=== PATIENT | male | born 1990 | race Caucasian/White ===

== ENCOUNTER 2017-03-23 21:37 | Emergency (ER) | payer MEDICAID, OTHER ==
[~2017-03-23] VITALS: Ht 177.8 cm; Wt 84.0 kg
[2017-03-23 21:39] VITALS: BP 137/83; PULSE 55; RESP 16; TEMP 98.8; O2SAT 99
--- NOTE | 2017-03-23 21:53 | PD ---
Physical Exam Time Seen by Provider: 21:50 Narrative 26yo M c/o abd pain x1 month w/ nausea and three episodes of vomiting in the past month. Reports occasional diarrhea. Denies urinary symptoms. reports decreased appetite. Denies fever. Patient stable. Patient seen in triage. Awaiting bed placement. Data Data Last Documented VS Vital Signs Date Time Temp Pulse Resp B/P Pulse Ox O2 Delivery O2 Flow Rate FiO2 03/23/17 21:39 98.8 55 16 137/83 99 Room Air [place] Supervised Visit with IRVIN: Anny Cody Mar 23, 2017 21:53
[2017-03-23 23:03] VITALS: BP 151/95; PULSE 65; RESP 16; TEMP 98.6; O2SAT 99
--- NOTE | 2017-03-23 23:11 | PD ---
HPI Chief Complaint: Abdominal Pain Time Seen by Provider: 23:11 Travel History International Travel<30 days: No Contact w/Intl Traveler<30days: No Traveled to known affect area: No History of Present Illness HPI 26-year-old male came to the emergency room with history of nausea, occasional vomiting and abdominal pain for past 3 weeks. Patient says that his symptoms are not getting better. He decided to come to the emergency room. He does have an appointment with his primary care in the morning. But he could not take it anymore and decided to come here. His mother was in the room as well. Patient upon asking says drinks alcohol once every 2 days. He has had history of gastritis in the past. But it has never lasted this long. He has been extremely nauseous and not been eating or drinking too well. Upon asking to point out where he hurts the most he pointed to the epigastric and periumbilical area. No history of diarrhea or constipation. Patient has history of hydrocephalus and has a SENIOR MEDICAL BILLING SPECIALIST shunt. He had an MRI done over a week ago and is supposed to see his physician next week. No history of headache. PFSH Past Medical History Narrative Medical List of his past medical, surgical, social and family history was reviewed from the nursing note. Diminished Hearing: No Medical other: Yes (Chronic neck pain) Tetanus Vaccination: Unknown Influenza Vaccination: No Past Surgical History Neurologic Surgery: Yes (SENIOR MEDICAL BILLING SPECIALIST shunt from 1991) Social History Alcohol Use: Yes (1-2 beers every other day) Tobacco Use: Yes Substance Use: Yes (marijuana occaisonal) Allergies-Medications (Allergen,Severity, Reaction): Coded Allergies: No Known Allergies (Unverified , 03/23/17) Comments No known drug allergies. Reported Meds & Prescriptions Reported Meds & Active Scripts Active Zofran Odt (Ondansetron Odt) 4 Mg Tab 4 Mg SL Q6HR PRN Protonix (Pantoprazole Sodium) 20 Mg Tab 20 Mg PO DAILY Hydrocodone-Acetaminophen 5-325 mg Tab 1 Tab PO Q6H PRN Reported Cymbalta DR (Duloxetine HCl) 60 Mg Capdr 60 Mg PO DAILY Vistaril (Hydroxyzine Pamoate) 50 Mg Cap 50 Mg PO TID [place] (Hydrocodone-Acetaminophen) 7.5-325 mg Tab 1 Tab PO Q8HR PRN Narrative Medication List of his home medications reviewed from the nursing note. Review of Systems Except as stated in HPI: all other systems reviewed are Neg Physical Exam Narrative GENERAL: Awake, alert, mild distress SKIN: Focused skin assessment warm/dry. HEAD: Atraumatic. Normocephalic. EYES: Pupils equal and round. No scleral icterus. No injection or drainage. Sustained nystagmus ENT: No nasal bleeding or discharge. Mucous membranes pink and moist. NECK: Trachea midline. No JVD. SENIOR MEDICAL BILLING SPECIALIST shunt cord noticed. CARDIOVASCULAR: Regular rate and rhythm. No murmur appreciated. RESPIRATORY: No accessory muscle use. Clear to auscultation. Breath sounds equal bilaterally. GASTROINTESTINAL: Abdomen soft, non-tender, nondistended. Hepatic and splenic margins not palpable. MUSCULOSKELETAL: No obvious deformities. No clubbing. No cyanosis. No edema. NEUROLOGICAL: Awake and alert. No obvious cranial nerve deficits. Motor grossly within normal limits. Normal speech. PSYCHIATRIC: Appropriate mood and affect; insight and judgment normal. Data Data Last Documented VS Vital Signs Date Time Temp Pulse Resp B/P Pulse Ox O2 Delivery O2 Flow Rate FiO2 03/24/17 00:25 16 03/23/17 23:03 98.6 65 151/95 99 Room Air Orders Complete Blood Count With Diff (03/23/17 23:23) Comprehensive Metabolic Panel (03/23/17 23:23) Lipase (03/23/17 23:23) Urinalysis - C+S If Indicated (03/23/17 23:23) Iv Access Insert/Monitor (03/23/17 23:23) Ecg Monitoring (03/23/17 23:23) Oximetry (03/23/17 23:23) Morphine Inj (Morphine Inj) (03/23/17 23:30) Ondansetron Inj (Zofran Inj) (03/23/17 23:30) Sodium Chlor 0.9% 1000 Ml Inj (Ns 1000 M (03/23/17 23:23) Sodium Chloride 0.9% Flush (Ns Flush) (03/23/17 23:30) Ct Abd/Pel W/O Iv Contrast (03/23/17 ) Ct Brain W/O Iv Contrast(Rout) (03/23/17 ) Potassium Chloride Eff (K-Lyte Cl Eff) (03/24/17 09:00) Potassium Chlor 10 Meq Premix (Kcl 10 Me (03/24/17 00:30) Calcium Gluconate Inj (Calcium Gluconate (03/24/17 00:45) Sodium Chlor 0.9% 1000 Ml Inj (Ns 1000 M (03/24/17 00:45) Ondansetron Inj (Zofran Inj) (03/24/17 01:45) Labs Laboratory Tests Test 03/23/17 03/24/17 23:30 00:25 White Blood Count 9.4 TH/MM3 Red Blood Count 4.90 MIL/MM3 Hemoglobin 14.7 GM/DL Hematocrit 42.9 % Mean Corpuscular Volume 87.5 FL Mean Corpuscular Hemoglobin 30.1 PG Mean Corpuscular Hemoglobin 34.3 % Concent Red Cell Distribution Width 14.2 % Platelet Count 203 TH/MM3 Mean Platelet Volume 10.6 FL Neutrophils (%) (Auto) 70.1 % Lymphocytes (%) (Auto) 19.3 % Monocytes (%) (Auto) 9.0 % Eosinophils (%) (Auto) 1.1 % Basophils (%) (Auto) 0.5 % Neutrophils # (Auto) 6.6 TH/MM3 Lymphocytes # (Auto) 1.8 TH/MM3 Monocytes # (Auto) 0.8 TH/MM3 Eosinophils # (Auto) 0.1 TH/MM3 Basophils # (Auto) 0.1 TH/MM3 CBC Comment DIFF FINAL Differential Comment Sodium Level 144 MEQ/L Potassium Level 3.1 MEQ/L Chloride Level 114 MEQ/L Carbon Dioxide Level 19.5 MEQ/L Anion Gap 11 MEQ/L Blood Urea Nitrogen 7 MG/DL Creatinine 0.71 MG/DL Estimat Glomerular Filtration 135 ML/MIN Rate Random Glucose 75 MG/DL Calcium Level 6.8 MG/DL Protein Corrected Calcium 7.4 MG/DL Total Bilirubin 0.2 MG/DL Aspartate Amino Transf 21 U/L (AST/SGOT) Alanine Aminotransferase 44 U/L (ALT/SGPT) Alkaline Phosphatase 72 U/L Total Protein 5.9 GM/DL Albumin 3.2 GM/DL Lipase 735 U/L Urine Color LIGHT-YELLOW Urine Turbidity CLEAR Urine pH 7.0 Urine Specific [place] 1.008 Urine Protein NEG mg/dL Urine Glucose (UA) NEG mg/dL Urine Ketones NEG mg/dL Urine Occult Blood NEG Urine Nitrite NEG Urine Bilirubin NEG Urine Urobilinogen LESS THAN 2.0 MG/DL Urine Leukocyte Esterase NEG Urine RBC LESS THAN 1 /hpf Urine Mucus FEW /lpf Microscopic Urinalysis Comment CULT NOT INDICATED MDM Medical Decision Making Medical Screen Exam Complete: Yes Emergency Medical Condition: Yes Medical Record Reviewed: Yes Differential Diagnosis Acute pancreatitis, acute appendicitis, acute cholecystitis Narrative Course 1:52 AM blood test result was suggestive of acute pancreatitis with hypokalemia , hypocalcemia and dehydration. He was given by mouth and IV replacement of potassium and calcium. CT of the abdomen and pelvis was within normal limits. Patient was given instructions regarding clear liquid diet for next 48 hours. He will be discharged home. He has an appointment with his primary care this morning. Procedures EKG Prior to Arrival: No Diagnosis Primary Impression: Acute pancreatitis Qualified Code: K85.20 - Alcohol-induced acute pancreatitis, unspecified complication status Additional Impressions: Hypokalemia Hypocalcemia Dehydration Referrals: Primary Care Physician Additional Instructions: Please follow-up with your primary care as per the appointment this morning. Take clear liquid diet for the next 48 hours. Clear liquid diet consists of apple juice, Jell-O, clear broth, varinder sina, regular tea etc. Please return to the ER if the condition worsens or any other new concerns. Take the medication as per the prescription direction. Complete alcohol abstinence as required. Med/Other Pt SpecificInfo: Prescription(s) given Scripts Ondansetron Odt (Zofran Odt)4 Mg Tab4 Mg SL Q6HR PRN (Nausea/Vomiting) #15 TAB Ref 0 Prov:Dio Lyon MD 03/24/17 Pantoprazole (Protonix)20 Mg Tab20 Mg PO DAILY #30 TAB Ref 0 Prov:Dio Lyon MD 03/24/17 Hydrocodone-Acetaminophen 5-325 mg Tab1 Tab PO Q6H PRN (PAIN) #15 TAB Ref 0 Prov:Dio Lyon MD 03/24/17 Disposition: 01 DISCHARGE HOME Condition: Stable Dio Lyon MD Mar 23, 2017 23:11 Dio Lyon MD Mar 23, 2017 23:11
[2017-03-23] MEDS ORDERED: VIST50CA PO (23:13)
[2017-03-23] MEDS ORDERED: HYDR-3288 PO (23:13)
[2017-03-23] MEDS ORDERED: CYMB60CA PO (23:13)
[2017-03-23] MEDS ORDERED: SODIUM CHLOR 0.9% 1000 ML INJ 1,000 ML IV SCH (23:23)
[2017-03-23] MEDS ORDERED: ONDANSETRON HCL 4 MG/2 ML VIAL IVP ONE (23:30)
[2017-03-23] MEDS ORDERED: SODIUM CHLORIDE 0.9% FLUSH 10 ML FLUSH IV FLUSH PRN (23:30)
[2017-03-23] MEDS ORDERED: MORPHINE SULFATE 4 MG/ML INJ IV PUSH ONE (23:30)
[2017-03-23 23:51] LABS: AUTOMATED NEUTROPHIL # 6.6 TH/MM3 (1.8-7.7); BASOPHIL # 0.1 TH/MM3 (0-0.2); BASOPHIL % 0.5 % (0.0-2.0); EOSINOPHIL # 0.1 TH/MM3 (0-0.4); EOSINOPHIL % 1.1 % (0.0-4.0); HEMATOCRIT 42.9 % (39.0-51.0); HEMO FLAGS DIFF FINAL; LYMPH % 19.3 % (9.0-44.0); LYMPHOCYTE # 1.8 TH/MM3 (1.0-4.8); MEAN CELL VOLUME 87.5 FL (80.0-100.0); MEAN CORPUSCULAR HEMOGLOBIN 30.1 PG (27.0-34.0); MEAN CORPUSCULAR HGB CONC 34.3 % (32.0-36.0); NEUT % 70.1 % (16.0-70.0); PLATELET COUNT 203 TH/MM3 (150-450); RED CELL DISTRIBUTION WIDTH 14.2 % (11.6-17.2); WHITE BLOOD COUNT 9.4 TH/MM3 (4.0-11.0)
--- NOTE | 2017-03-23 23:55 | RADRPT ---
EXAM DATE/TIME: 03/23/2017 23:39 [facility] COMPARISON: No previous studies available for comparison. INDICATIONS : Medial abdominal pain with nausea and vomiting. ORAL CONTRAST: No oral contrast ingested. 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 ENCOUNTER: Initial ACUITY: 1 month PAIN SCALE: 7/10 LOCATION: medial abdomen TECHNIQUE: Volumetric scanning of the abdomen and pelvis was performed. Using automated exposure control and ad justment of the mA and/or kV according to patient size, radiation dose was kept as low as reasonably achievable to obtain optimal diagnostic quality images. FINDINGS: LOWER LUNGS: The visualized lower lungs are clear. LIVER: Homogeneous density without lesion. There is no dilation of the biliary tree. No calcified gallston es. SPLEEN: Normal size without lesion. PANCREAS: Within normal limits. KIDNEYS: Normal in size and shape. There is no mass, stone, or hydronephrosis. ADRENAL GLANDS: Within normal limits. VASCULAR: There is no aortic aneurysm. BOWEL/MESENTERY: The stomach, small bowel, and colon demonstrate no acute abnormality. There is no free intraperitone al air or fluid. The appendix is unremarkable. No inflammatory changes are seen. There is a peritonea l catheter in the right anterior to mid abdomen. No loculated fluid collections are demonstrated. ABDOMINAL WALL: Within normal limits. RETROPERITONEUM: There is no lymphadenopathy. BLADDER: No wall thickening or mass. REPRODUCTIVE: Within normal limits. INGUINAL: There is no lymphadenopathy or hernia. MUSCULOSKELETAL: Within normal limits for patient age. CONCLUSION: Unremarkable CT scan of the abdomen/pelvis. Jose Martin Villalta MD on March 23, 2017 at 23:51 Board Certified Radiologist. This report was verified electronically.
--- NOTE | 2017-03-23 23:58 | RADRPT ---
EXAM DATE/TIME: 03/23/2017 23:42 [facility] COMPARISON: No previous studies available for comparison. INDICATIONS : Cephalgia. 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 ENCOUNTER: Initial ACUITY: 1 day PAIN SCALE: 4/10 LOCATION: cranial TECHNIQUE: Multiple contiguous axial images were obtained of the head. Using automated exposure control and adj ustment of the mA and/or kV according to patient size, radiation dose was kept as low as reasonably a chievable to obtain optimal diagnostic quality images. FINDINGS: CEREBRUM: The ventricles are decompressed. There is a right ventricular/peritoneal shunt catheter is in place i n the frontal horn of the right lateral ventricle.. No evidence of midline shift, mass lesion, hemor rhage or acute infarction. No extra-axial fluid collections are seen. There are some calcifications along the posterior falx. POSTERIOR FOSSA: The cerebellum and brainstem are intact. The 4th ventricle is midline. The cerebellopontine angle i s unremarkable. EXTRACRANIAL: The visualized portion of the orbits is intact. SKULL: The calvaria is intact. No evidence of skull fracture. CONCLUSION: 1. No focal or acute intracranial pathology. 2. Right SENIOR PRODUCT INTEGRITY ENGINEER shunt catheter in place. The ventricles are decompressed. Jose Martin Villalta MD on March 23, 2017 at 23:54 Board Certified Radiologist. This report was verified electronically.
[2017-03-24 00:17] LABS: BICARBONATE 19.5 MEQ/L (21.0-32.0); POTASSIUM 3.1 MEQ/L (3.5-5.1); TOTAL BILIRUBIN ADULT 0.2 MG/DL (0.2-1.0)
[2017-03-24 00:20] LABS: CALCIUM-PROTEIN CORRECTED 7.4 MG/DL (8.5-10.1)
[2017-03-24 00:25] VITALS: RESP 16
[2017-03-24] MEDS ORDERED: POTASSIUM CHLOR 10 MEQ PREMIX 100 ML IV ONE (00:30)
[2017-03-24] MEDS ORDERED: CALCIUM GLUCONATE 10% 1 GM/10 ML VIAL IV PUSH ONE (00:45)
[2017-03-24] MEDS ORDERED: SODIUM CHLOR 0.9% 1000 ML INJ 1,000 ML IV ONE (00:45)
[2017-03-24 00:55] LABS: BLOOD, URINE NEG (NEG); GLUCOSE,URINE NEG (NEG); KETONE, URINE NEG (NEG); MUCUS URINE FEW /lpf (OCC); NITRITE,URINE NEG (NEG); URINE COLOR LIGHT-YELLOW (YELLW/STRAW)
[2017-03-24 00:56] LABS: COMMENT (UR) CULT NOT INDICATED; CULTURE IF INDICATED CULT NOT INDICATED
[2017-03-24] MEDS ORDERED: ONDANSETRON HCL 4 MG/2 ML VIAL IV PUSH ONE (01:45)
[2017-03-24] MEDS ORDERED: HYDR-3516 PO (01:56)
[2017-03-24] MEDS ORDERED: PANT20 PO (01:56)
[2017-03-24] MEDS ORDERED: ZOFR4TAB3 SL (01:56)
[2017-03-24] MEDS ORDERED: POTASSIUM CHLORIDE 25 MEQ EFFERVESCENT TAB NG SCH (09:00)
== END 2017-03-24 03:27 | disposition home or self-care (01) ==
LOC: NEPE 21:37
DX: K85.90 Acute pancreatitis without necrosis or infection, unspecified (principal); E87.6 Hypokalemia; E83.51 Hypocalcemia; E86.0 Dehydration; Z72.0 Tobacco use
CPT/HCPCS: 70450; 74176; 80053; 81001; 83690; 85025; 96361; 96374; 96375; 96376; 99284; J0610; J2270; J2405; J3480; J7030

== ENCOUNTER 2017-04-15 11:51 | Emergency (ER) | payer MEDICAID ==
[~2017-04-15] VITALS: Ht 177.8 cm; Wt 85.0 kg
[~2017-04-15 11:51] MED LIST: CYMB60CA PO; HYDR-3288 PO; HYDR-3516 PO; PANT20 PO; VIST50CA PO; ZOFR4TAB3 SL
[2017-04-15 11:53] VITALS: BP 134/87; PULSE 120; RESP 24; TEMP 97.2; O2SAT 99
[2017-04-15] MEDS ORDERED: SODIUM CHLOR 0.9% 1000 ML INJ 1,000 ML IV SCH (12:20)
--- NOTE | 2017-04-15 12:25 | PD ---
HPI Chief Complaint: Abdominal Pain Time Seen by Provider: 12:22 Travel History International Travel<30 days: No Contact w/Intl Traveler<30days: No Traveled to known affect area: No History of Present Illness HPI 26-year-old male presents to the emergency department with his mother and father for evaluation of abdominal pain. Patient states this started yesterday. Patient does report history of hydrocephalus with LABORATORY APPARATUS GLASS BLOWER shunt. He is also legally blind according to his mother at bedside. The patient reports one episode of vomiting and 3 episodes of diarrhea today. No blood in his stool. Patient does state that he drink 2 wine coolers yesterday and the pain started after. Patient states he has been having this intermittent pain over the past few months. He was seen here on March 23, 2017 was diagnosed with acute pancreatitis. He states that he follow up with primary care physician who only put him on stool softeners and said that the pain continued they would give him a GI consult. He is trying to get that GI consult at this time, but has not yet received it. No chest pain. No fevers. He has had positive chills. PFSH Past Medical History Diminished Hearing: No Past Surgical History Neurologic Surgery: Yes (LABORATORY APPARATUS GLASS BLOWER shunt from 1991) Social History Alcohol Use: Yes (1-2 beers every other day) Tobacco Use: Yes Substance Use: Yes (marijuana occaisonal) Allergies-Medications (Allergen,Severity, Reaction): Coded Allergies: No Known Allergies (Unverified , 03/23/17) Reported Meds & Prescriptions Reported Meds & Active Scripts Active Ondansetron Odt 4 Mg Tab 4 Mg SL Q6HR PRN Bentyl (Dicyclomine HCl) 20 Mg Tab 20 Mg PO QID PRN 7 Days Zofran Odt (Ondansetron Odt) 4 Mg Tab 4 Mg SL Q6HR PRN Protonix (Pantoprazole Sodium) 20 Mg Tab 20 Mg PO DAILY Hydrocodone-Acetaminophen 5-325 mg Tab 1 Tab PO Q6H PRN Reported Cymbalta DR (Duloxetine HCl) 60 Mg Capdr 60 Mg PO DAILY Vistaril (Hydroxyzine Pamoate) 50 Mg Cap 50 Mg PO TID [place] (Hydrocodone-Acetaminophen) 7.5-325 mg Tab 1 Tab PO Q8HR PRN Review of Systems Except as stated in HPI: all other systems reviewed are Neg Physical Exam Narrative GENERAL: Well-nourished, well-developed male patient, afebrile. SKIN: Focused skin assessment warm/dry. HEAD: Normocephalic. Atraumatic. EYES: No scleral icterus. No injection or drainage. NECK: Supple, trachea midline. No JVD or lymphadenopathy. CARDIOVASCULAR: Regular rate and rhythm without murmurs, gallops, or rubs. RESPIRATORY: Breath sounds equal bilaterally. No accessory muscle use. Lungs sounds are clear to auscultation. GASTROINTESTINAL: Abdomen soft and nondistended. Patient has diffuse tenderness throughout. MUSCULOSKELETAL: No cyanosis, or edema. BACK: Nontender without obvious deformity. No CVA tenderness. Data Data Last Documented VS Vital Signs Date Time Temp Pulse Resp B/P Pulse Ox O2 Delivery O2 Flow Rate FiO2 04/15/17 14:16 66 04/15/17 14:15 16 119/77 99 Room Air 04/15/17 11:53 97.2 Orders Complete Blood Count With Diff (04/15/17 12:20) Comprehensive Metabolic Panel (04/15/17 12:20) Lipase (04/15/17 12:20) Iv Access Insert/Monitor (04/15/17 12:20) Ecg Monitoring (04/15/17 12:20) Oximetry (04/15/17 12:20) Ondansetron Inj (Zofran Inj) (04/15/17 12:30) Sodium Chlor 0.9% 1000 Ml Inj (Ns 1000 M (04/15/17 12:20) Sodium Chloride 0.9% Flush (Ns Flush) (04/15/17 12:30) Morphine Inj (Morphine Inj) (04/15/17 12:30) Pantoprazole Inj (Protonix Inj) (04/15/17 12:30) Labs Laboratory Tests Test 04/15/17 12:30 White Blood Count 8.2 TH/MM3 Red Blood Count 4.93 MIL/MM3 Hemoglobin 14.5 GM/DL Hematocrit 42.5 % Mean Corpuscular Volume 86.3 FL Mean Corpuscular Hemoglobin 29.4 PG Mean Corpuscular Hemoglobin 34.1 % Concent Red Cell Distribution Width 13.4 % Platelet Count 257 TH/MM3 Mean Platelet Volume 10.6 FL Neutrophils (%) (Auto) 70.4 % Lymphocytes (%) (Auto) 19.9 % Monocytes (%) (Auto) 7.9 % Eosinophils (%) (Auto) 1.0 % Basophils (%) (Auto) 0.8 % Neutrophils # (Auto) 5.7 TH/MM3 Lymphocytes # (Auto) 1.6 TH/MM3 Monocytes # (Auto) 0.6 TH/MM3 Eosinophils # (Auto) 0.1 TH/MM3 Basophils # (Auto) 0.1 TH/MM3 CBC Comment DIFF FINAL Differential Comment Sodium Level 138 MEQ/L Potassium Level 3.9 MEQ/L Chloride Level 105 MEQ/L Carbon Dioxide Level 21.6 MEQ/L Anion Gap 11 MEQ/L Blood Urea Nitrogen 11 MG/DL Creatinine 0.97 MG/DL Estimat Glomerular Filtration 94 ML/MIN Rate Random Glucose 94 MG/DL Calcium Level 9.5 MG/DL Total Bilirubin 0.3 MG/DL Aspartate Amino Transf 29 U/L (AST/SGOT) Alanine Aminotransferase 59 U/L (ALT/SGPT) Alkaline Phosphatase 95 U/L Total Protein 7.6 GM/DL Albumin 4.1 GM/DL Lipase 99 U/L [facility] Medical Decision Making Medical Screen Exam Complete: Yes Emergency Medical Condition: Yes Medical Record Reviewed: Yes Differential Diagnosis Pancreatitis versus gastritis versus electrolyte abnormality versus diverticulitis Narrative Course 26-year-old male presents to the emergency department for evaluation of abdominal pain that started yesterday. He was seen on March 23, 2017 was diagnosed acute pancreatitis. CT abdomen/pelvis at that time showed no acute abnormality. Patient was discharged home. CBC, CMP, lipase are ordered and pending. Patient is given normal saline 1 L IV bolus, Zofran 4 mg IV, Protonix 40 mg IV, morphine 4 mg IV for pain. CBC shows no acute abnormality. CMP is unremarkable. Lipase is 99. Patient had recent CT imaging that showed no acute abnormality. I instructed the patient on the need to follow up with gastroenterology. He'll be discharged with a prescription for Bentyl and Zofran. Patient verbalizes agreement. Patient is requesting penicillin for a toothache. The patient was discharged in stable condition with instructions, including return instructions and follow up instructions. Diagnosis Primary Impression: Abdominal pain Qualified Code: R10.9 - Abdominal pain, unspecified location Referrals: Aircraft Life Support Fitter call for appointment Patient Instructions: Abdominal Pain (ED), General Instructions Additional Instructions: Take Bentyl as directed as needed for abdominal pain. Take Zofran as directed as needed for nausea. Penicillin for toothache. Follow up with prepress proofer. Return to emergency department for any acute, worsening of symptoms. Med/Other Pt SpecificInfo: Prescription(s) given Scripts Penicillin V Potassium 500 Mg [id number] Mg PO Q6H 10 Days Ref 0 Prov:Janie Hough 04/15/17 Ondansetron Odt 4 Mg Tab4 Mg SL Q6HR PRN (Nausea/Vomiting) #16 TAB Ref 0 Prov:Janie Hough 04/15/17 Dicyclomine (Bentyl)20 Mg Tab20 Mg PO QID PRN (ABDOMINAL CRAMPING) 7 Days Ref 0 Prov:Janie Hough 04/15/17 Disposition: 01 DISCHARGE HOME Condition: Stable Janie Hough April 15, 2017 12:24
[2017-04-15] MEDS ORDERED: MORPHINE SULFATE 4 MG/ML INJ IV PUSH ONE (12:30)
[2017-04-15] MEDS ORDERED: ONDANSETRON HCL 4 MG/2 ML VIAL IVP ONE (12:30)
[2017-04-15] MEDS ORDERED: PANTOPRAZOLE SODIUM 40 MG VIAL IV PUSH ONE (12:30)
[2017-04-15] MEDS ORDERED: SODIUM CHLORIDE 0.9% FLUSH 10 ML FLUSH IV FLUSH PRN (12:30)
[2017-04-15 13:00] LABS: AUTOMATED NEUTROPHIL # 5.7 TH/MM3 (1.8-7.7); BASOPHIL # 0.1 TH/MM3 (0-0.2); BASOPHIL % 0.8 % (0.0-2.0); EOSINOPHIL # 0.1 TH/MM3 (0-0.4); HEMATOCRIT 42.5 % (39.0-51.0); HEMO FLAGS DIFF FINAL; LYMPH % 19.9 % (9.0-44.0); LYMPHOCYTE # 1.6 TH/MM3 (1.0-4.8); MEAN CELL VOLUME 86.3 FL (80.0-100.0); MEAN CORPUSCULAR HEMOGLOBIN 29.4 PG (27.0-34.0); MEAN CORPUSCULAR HGB CONC 34.1 % (32.0-36.0); MONO % 7.9 % (0.0-8.0); NEUT % 70.4 % (16.0-70.0); PLATELET COUNT 257 TH/MM3 (150-450); RED BLOOD COUNT 4.93 MIL/MM3 (4.50-5.90); RED CELL DISTRIBUTION WIDTH 13.4 % (11.6-17.2); WHITE BLOOD COUNT 8.2 TH/MM3 (4.0-11.0)
[2017-04-15 13:24] LABS: ALKALINE PHOSPHATASE 95 U/L (45-117); ALT (GPT) 59 U/L (12-78); ANION GAP 11 MEQ/L (5-15); AST (GOT) 29 U/L (15-37); BICARBONATE 21.6 MEQ/L (21.0-32.0); BLOOD UREA NITROGEN 11 MG/DL (7-18); CHLORIDE 105 MEQ/L (98-107); GLOMERULAR FILTRATION RATE 94 ML/MIN (>89); POTASSIUM 3.9 MEQ/L (3.5-5.1); SODIUM (NA) 138 MEQ/L (136-145); TOTAL BILIRUBIN ADULT 0.3 MG/DL (0.2-1.0)
[2017-04-15] MEDS ORDERED: ONDA4TAB7 SL (13:56)
[2017-04-15] MEDS ORDERED: BENT20TA PO (13:56)
[2017-04-15 14:15] VITALS: BP 119/77; PULSE 66; RESP 16; O2SAT 99
[2017-04-15 14:16] VITALS: PULSE 66
[2017-04-15] MEDS ORDERED: PENI500T PO (14:36)
--- NOTE | 2017-04-15 14:44 | PD ---
Data Data Last Documented VS Vital Signs Date Time Temp Pulse Resp B/P Pulse Ox O2 Delivery O2 Flow Rate FiO2 04/15/17 14:16 66 04/15/17 14:15 16 119/77 99 Room Air 04/15/17 11:53 97.2 Orders Complete Blood Count With Diff (04/15/17 12:20) Comprehensive Metabolic Panel (04/15/17 12:20) Lipase (04/15/17 12:20) Iv Access Insert/Monitor (04/15/17 12:20) Ecg Monitoring (04/15/17 12:20) Oximetry (04/15/17 12:20) Ondansetron Inj (Zofran Inj) (04/15/17 12:30) Sodium Chlor 0.9% 1000 Ml Inj (Ns 1000 M (04/15/17 12:20) Sodium Chloride 0.9% Flush (Ns Flush) (04/15/17 12:30) Morphine Inj (Morphine Inj) (04/15/17 12:30) Pantoprazole Inj (Protonix Inj) (04/15/17 12:30) Labs Laboratory Tests Test 04/15/17 12:30 White Blood Count 8.2 TH/MM3 Red Blood Count 4.93 MIL/MM3 Hemoglobin 14.5 GM/DL Hematocrit 42.5 % Mean Corpuscular Volume 86.3 FL Mean Corpuscular Hemoglobin 29.4 PG Mean Corpuscular Hemoglobin 34.1 % Concent Red Cell Distribution Width 13.4 % Platelet Count 257 TH/MM3 Mean Platelet Volume 10.6 FL Neutrophils (%) (Auto) 70.4 % Lymphocytes (%) (Auto) 19.9 % Monocytes (%) (Auto) 7.9 % Eosinophils (%) (Auto) 1.0 % Basophils (%) (Auto) 0.8 % Neutrophils # (Auto) 5.7 TH/MM3 Lymphocytes # (Auto) 1.6 TH/MM3 Monocytes # (Auto) 0.6 TH/MM3 Eosinophils # (Auto) 0.1 TH/MM3 Basophils # (Auto) 0.1 TH/MM3 CBC Comment DIFF FINAL Differential Comment Sodium Level 138 MEQ/L Potassium Level 3.9 MEQ/L Chloride Level 105 MEQ/L Carbon Dioxide Level 21.6 MEQ/L Anion Gap 11 MEQ/L Blood Urea Nitrogen 11 MG/DL Creatinine 0.97 MG/DL Estimat Glomerular Filtration 94 ML/MIN Rate Random Glucose 94 MG/DL Calcium Level 9.5 MG/DL Total Bilirubin 0.3 MG/DL Aspartate Amino Transf 29 U/L (AST/SGOT) Alanine Aminotransferase 59 U/L (ALT/SGPT) Alkaline Phosphatase 95 U/L Total Protein 7.6 GM/DL Albumin 4.1 GM/DL Lipase 99 U/L [facility] Supervised Visit with IRVIN: Yes Narrative Course The history, exam, and medical decision-making in the associated mid-level provider note were completed with my assistance. I reviewed and agree with the findings presented. I attest that I had a [id number] encounter with the patient on the same day, and personally performed and documented my assessment and findings in the medical record. *My assessment and Findings: 26-year-old man with abdominal pain for the past several weeks. Etiology is unclear. He is to be pretty heavy drinker. He has not drank in several months. He had workup including a mildly elevated lipase when he was here last. CT was normal. Never really fully improved. He still having significant pain. He has not been able follow-up with GI. Is no history of previous similar problems. His a NEON SIGN MECHANIC shunt but no other abdominal surgeries. Workup here is unremarkable with normal labs. I think the patient needs a endoscopy and GI follow-up. We'll give him a referral. Diagnosis Primary Impression: Abdominal pain Qualified Code: R10.9 - Abdominal pain, unspecified location Referrals: Title Assistant call for appointment Patient Instructions: General Instructions, Abdominal Pain (ED) Additional Instruction: Take Bentyl as directed as needed for abdominal pain. Take Zofran as directed as needed for nausea. Penicillin for toothache. Follow up with medical assistant dermatology for possible endoscopy. Return to emergency department for any acute, worsening of symptoms. Scripts Penicillin V Potassium 500 Mg [id number] Mg PO Q6H 10 Days Ref 0 Prov:Janie Hough 04/15/17 Ondansetron Odt 4 Mg Tab4 Mg SL Q6HR PRN (Nausea/Vomiting) #16 TAB Ref 0 Prov:Janie Hough 04/15/17 Dicyclomine (Bentyl)20 Mg Tab20 Mg PO QID PRN (ABDOMINAL CRAMPING) 7 Days Ref 0 Prov:Janie Hough 04/15/17 Disposition: 01 DISCHARGE HOME Condition: Stable TrishaJames C. MD April 15, 2017 14:43
== END 2017-04-15 14:58 | disposition home or self-care (01) ==
LOC: NEPC 11:51
DX: R10.9 Unspecified abdominal pain (principal)
CPT/HCPCS: 80053; 83690; 85025; 96361; 96374; 96375; 99284; C9113; J2270; J2405; J7030

== ENCOUNTER 2017-04-29 11:06 | Inpatient (IN) | payer MEDICAID ==
[~2017-04-29] VITALS: Ht 177.8 cm; Wt 78.4 kg
[~2017-04-29 11:06] MED LIST changes: +BENT20TA PO; +ONDA4TAB7 SL; +PENI500T PO
[2017-04-29 11:08] VITALS: BP 132/84; PULSE 62; RESP 20; TEMP 98.6; O2SAT 98
[2017-04-29] MEDS ORDERED: SODIUM CHLOR 0.9% 1000 ML INJ 1,000 ML IV SCH (11:46)
--- NOTE | 2017-04-29 11:56 | PD ---
HPI Chief Complaint: Abdominal Pain Time Seen by Provider: 11:45 Travel History International Travel<30 days: No Contact w/Intl Traveler<30days: No Traveled to known affect area: No History of Present Illness HPI This is a 26-year-old male presents for evaluation of abdominal pain, nausea, vomiting, diarrhea. He has had constant aching generalized abdominal pain for 2 months. He reports that sometimes the pain comes on in stronger waves on the sides of his abdomen. He has had intermittent episodes of nausea and vomiting, loose stools over the course of these 2 months as well. He has been seen at this emergency room twice in the past few months, when outside emergency room for evaluation of these symptoms. He was found to have mild pancreatitis and early February. He has been prescribed Protonix, Bentyl, Zofran which seems to help only mildly with his symptoms. He has been smoking marijuana which does help with his symptoms as well. Symptoms worsened today which prompted evaluation. He has been told in the past to follow-up with gastroenterology but he was having difficulty getting a referral from his primary care physician. He recently switched primary care physicians, he was actually supposed to have his first appointment with his new primary care physician today but because symptoms were so great he elected to come here instead. He endorses one episode of mucousy bloody emesis today. He denies any flank pain, fevers or chills, headache, chest pain or shortness of breath, testicular or scrotal pain, dysuria. No other complaints. PFSH Past Medical History Diminished Hearing: No Past Surgical History Neurologic Surgery: Yes (ORAL AND MAXILLOFACIAL PATHOLOGIST shunt from 1991) Social History Alcohol Use: Yes Tobacco Use: No Substance Use: No Allergies-Medications (Allergen,Severity, Reaction): Coded Allergies: Tylenol/Codeine (Verified Adverse Reaction, Intermediate, Confusion, ) says he also become combative Reported Meds & Prescriptions Reported Meds & Active Scripts Active Penicillin V Potassium 500 Mg Tab 500 Mg PO Q6H 10 Days Ondansetron Odt 4 Mg Tab 4 Mg SL Q6HR PRN Bentyl (Dicyclomine HCl) 20 Mg Tab 20 Mg PO QID PRN 7 Days Zofran Odt (Ondansetron Odt) 4 Mg Tab 4 Mg SL Q6HR PRN Protonix (Pantoprazole Sodium) 20 Mg Tab 20 Mg PO DAILY Hydrocodone-Acetaminophen 5-325 mg Tab 1 Tab PO Q6H PRN Reported Cymbalta DR (Duloxetine HCl) 60 Mg Capdr 60 Mg PO DAILY Vistaril (Hydroxyzine Pamoate) 50 Mg Cap 50 Mg PO TID Sims (Hydrocodone-Acetaminophen) 7.5-325 mg Tab 1 Tab PO Q8HR PRN Review of Systems Except as stated in HPI: all other systems reviewed are Neg Physical Exam Narrative GENERAL: Well-developed well-nourished male in no acute distress SKIN: Warm and dry. HEAD: Atraumatic. Normocephalic. EYES: Pupils equal and round. No scleral icterus. No injection or drainage. ENT: No nasal bleeding or discharge. Mucous membranes pink and moist. NECK: Trachea midline. No JVD. CARDIOVASCULAR: Regular rate and rhythm. No murmur appreciated. RESPIRATORY: No accessory muscle use. Clear to auscultation. Breath sounds equal bilaterally. GASTROINTESTINAL: Abdomen soft, generalized tenderness to palpation, particularly greater in the epigastrium without guarding. MUSCULOSKELETAL: No obvious deformities. No CVA tenderness. No edema. NEUROLOGICAL: Awake and alert. No obvious cranial nerve deficits. Motor grossly within normal limits. Normal speech. PSYCHIATRIC: Appropriate mood and affect; insight and judgment normal. Data Data Last Documented VS Vital Signs Date Time Temp Pulse Resp B/P Pulse Ox O2 Delivery O2 Flow Rate FiO2 04/29/17 12:51 96 Room Air 04/29/17 11:08 98.6 62 20 132/84 Orders Complete Blood Count With Diff (04/29/17 11:46) Comprehensive Metabolic Panel (04/29/17 11:46) Lipase (04/29/17 11:46) Urinalysis - C+S If Indicated (04/29/17 11:46) Ct Abd/Pel W Iv Contrast(Rout) (04/29/17 11:46) Iv Access Insert/Monitor (04/29/17 11:46) Ecg Monitoring (04/29/17 11:46) Oximetry (04/29/17 11:46) Pantoprazole Inj (Protonix Inj) (04/29/17 12:00) Sodium Chlor 0.9% 1000 Ml Inj (Ns 1000 M (04/29/17 11:46) Sodium Chloride 0.9% Flush (Ns Flush) (04/29/17 12:00) Al-Mag Hy-Si 40-40-4 Mg/Ml Liq (Mag-Al P (04/29/17 12:00) Lidocaine 2% Viscous (Xylocaine 2% Visco (04/29/17 12:00) Metoclopramide Inj (Reglan Inj) (04/29/17 12:00) Morphine Inj (Morphine Inj) (04/29/17 12:45) Iohexol 350 Inj (Omnipaque 350 Inj) (04/29/17 13:19) Admit To Inpatient (04/29/17 ) Vital Signs (Adult) Q4H (04/29/17 14:10) Activity Oob With Assistance (04/29/17 14:10) Diet Npo (04/29/17 Dinner) Lactated Ringer's 1000 Ml Inj (Lr 1000 M (04/29/17 14:10) Sodium Chloride 0.9% Flush (Ns Flush) (04/29/17 14:15) Sodium Chloride 0.9% Flush (Ns Flush) (04/29/17 21:00) Ondansetron Inj (Zofran Inj) (04/29/17 14:15) Comprehensive Metabolic Panel (04/30/17 06:00) Complete Blood Count With Diff (04/30/17 06:00) Lipase (04/30/17 06:00) Case Management Consult (04/29/17 14:10) Scd Bilateral/Knee High NEFTALI.BID (04/29/17 14:10) Naloxone Inj (Narcan Inj) (04/29/17 14:15) Docusate Sodium-Senna (Cecilia-Colace) (04/29/17 21:00) Magnesium Hydroxide Liq (Milk Of Magnesi (04/29/17 14:15) Sennosides (Senokot) (04/29/17 14:15) Bisacodyl Supp (Dulcolax Supp) (04/29/17 14:15) Lactulose Liq (Lactulose Liq) (04/29/17 14:15) Inpatient Certification (04/29/17 ) Admit Order (Ed Use Only) (04/29/17 14:12) Labs Laboratory Tests Test 04/29/17 04/29/17 11:55 12:05 White Blood Count 7.7 TH/MM3 Red Blood Count 4.76 MIL/MM3 Hemoglobin 14.4 GM/DL Hematocrit 41.5 % Mean Corpuscular Volume 87.3 FL Mean Corpuscular Hemoglobin 30.2 PG Mean Corpuscular Hemoglobin 34.6 % Concent Red Cell Distribution Width 13.7 % Platelet Count 217 TH/MM3 Mean Platelet Volume 10.6 FL Neutrophils (%) (Auto) 70.9 % Lymphocytes (%) (Auto) 18.6 % Monocytes (%) (Auto) 7.9 % Eosinophils (%) (Auto) 2.2 % Basophils (%) (Auto) 0.4 % Neutrophils # (Auto) 5.5 TH/MM3 Lymphocytes # (Auto) 1.4 TH/MM3 Monocytes # (Auto) 0.6 TH/MM3 Eosinophils # (Auto) 0.2 TH/MM3 Basophils # (Auto) 0.0 TH/MM3 CBC Comment DIFF FINAL Differential Comment Sodium Level 139 MEQ/L Potassium Level 3.8 MEQ/L Chloride Level 108 MEQ/L Carbon Dioxide Level 25.2 MEQ/L Anion Gap 6 MEQ/L Blood Urea Nitrogen 7 MG/DL Creatinine 0.93 MG/DL Estimat Glomerular Filtration 99 ML/MIN Rate Random Glucose 104 MG/DL Calcium Level 8.7 MG/DL Total Bilirubin 0.3 MG/DL Aspartate Amino Transf 16 U/L (AST/SGOT) Alanine Aminotransferase 47 U/L (ALT/SGPT) Alkaline Phosphatase 97 U/L Total Protein 7.3 GM/DL Albumin 4.1 GM/DL Lipase 1106 U/L Urine Color YELLOW Urine Turbidity CLEAR Urine pH 6.5 Urine Specific [place] 1.018 Urine Protein TRACE mg/dL Urine Glucose (UA) NEG mg/dL Urine Ketones NEG mg/dL Urine Occult Blood NEG Urine Nitrite NEG Urine Bilirubin NEG Urine Urobilinogen LESS THAN 2.0 MG/DL Urine Leukocyte Esterase NEG Urine RBC LESS THAN 1 /hpf Urine WBC LESS THAN 1 /hpf Microscopic Urinalysis Comment CULT NOT INDICATED MDM Medical Decision Making Medical Screen Exam Complete: Yes Emergency Medical Condition: Yes Medical Record Reviewed: Yes Differential Diagnosis Gastritis, peptic ulcer disease, pancreatitis, biliary colic, cholecystitis, obstruction, gastroenteritis, perforation, inflammatory bowel disease Narrative Course 26-year-old male with 2 months of abdominal pain, intermittent episodes of nausea, vomiting, diarrhea, worse today. Plan is for basic lab work, CT abdomen and pelvis, urinalysis. He will be given Protonix, IV fluids, Reglan, GI cocktail. The patient's laboratory imaging studies of been reviewed. He has pancreatitis , enteritis. He will be admitted for further evaluation and treatment. Discussed with Dr. Melgoza who is agreeable. Diagnosis Primary Impression: Acute pancreatitis Qualified Code: K85.90 - Acute pancreatitis, unspecified complication status, unspecified pancreatitis type Additional Impression: Enteritis Admitting Information Admitting Physician Requests: Admit Elan Rodas April 29, 2017 11:56
[2017-04-29] MEDS ORDERED: PANTOPRAZOLE SODIUM 40 MG VIAL IVP ONE (12:00)
[2017-04-29] MEDS ORDERED: LIDOCAINE VISCOUS 2% SOLN 15 ML UDC PO ONE (12:00)
[2017-04-29] MEDS ORDERED: ALUMINUM/MAGNESIUM/SIMETH 30 ML CUP PO ONE (12:00)
[2017-04-29] MEDS ORDERED: METOCLOPRAMIDE HCL 10 MG/2 ML VIAL IV PUSH ONE (12:00)
[2017-04-29] MEDS ORDERED: SODIUM CHLORIDE 0.9% FLUSH 10 ML FLUSH IV FLUSH PRN ×2 (12:00→14:15)
[2017-04-29 12:07] LABS: AUTOMATED NEUTROPHIL # 5.5 TH/MM3 (1.8-7.7); BASOPHIL % 0.4 % (0.0-2.0); EOSINOPHIL # 0.2 TH/MM3 (0-0.4); EOSINOPHIL % 2.2 % (0.0-4.0); HEMATOCRIT 41.5 % (39.0-51.0); HEMO FLAGS DIFF FINAL; LYMPH % 18.6 % (9.0-44.0); LYMPHOCYTE # 1.4 TH/MM3 (1.0-4.8); MEAN CELL VOLUME 87.3 FL (80.0-100.0); MEAN CORPUSCULAR HEMOGLOBIN 30.2 PG (27.0-34.0); MEAN CORPUSCULAR HGB CONC 34.6 % (32.0-36.0); MONO % 7.9 % (0.0-8.0); NEUT % 70.9 % (16.0-70.0); PLATELET COUNT 217 TH/MM3 (150-450); RED BLOOD COUNT 4.76 MIL/MM3 (4.50-5.90); RED CELL DISTRIBUTION WIDTH 13.7 % (11.6-17.2); WHITE BLOOD COUNT 7.7 TH/MM3 (4.0-11.0)
[2017-04-29 12:30] LABS: ALT (GPT) 47 U/L (12-78); ANION GAP 6 MEQ/L (5-15); AST (GOT) 16 U/L (15-37); BICARBONATE 25.2 MEQ/L (21.0-32.0); BLOOD UREA NITROGEN 7 MG/DL (7-18); CHLORIDE 108 MEQ/L (98-107); GLOMERULAR FILTRATION RATE 99 ML/MIN (>89); POTASSIUM 3.8 MEQ/L (3.5-5.1); SODIUM (NA) 139 MEQ/L (136-145)
[2017-04-29 12:33] LABS: ALKALINE PHOSPHATASE 97 U/L (45-117); TOTAL BILIRUBIN ADULT 0.3 MG/DL (0.2-1.0)
[2017-04-29 12:34] LABS: BLOOD, URINE NEG (NEG); COMMENT (UR) CULT NOT INDICATED; CULTURE IF INDICATED CULT NOT INDICATED; GLUCOSE,URINE NEG (NEG); KETONE, URINE NEG (NEG); NITRITE,URINE NEG (NEG); PH, URINE 6.5 (5.0-8.5); URINE COLOR YELLOW (YELLW/STRAW)
[2017-04-29] MEDS ORDERED: MORPHINE SULFATE 4 MG/ML INJ IV PUSH ONE (12:45)
[2017-04-29 12:51] VITALS: O2SAT 96
[2017-04-29] MEDS ORDERED: IOHEXOL 350 MG/ML 10 ML VIAL (for RAD DIAG) IV ONE (13:19)
--- NOTE | 2017-04-29 13:50 | RADRPT ---
EXAM DATE/TIME: 04/29/2017 13:13 [facility] COMPARISON: No previous studies available for comparison. INDICATIONS : Abdomen pain for 1 month with nausea, vomiting and diarrhea IV CONTRAST: 99 cc Omnipaque 350 (iohexol) IV ORAL CONTRAST: No oral contrast ingested. RADIATION DOSE: 9.96 CTDIvol (mGy) MEDICAL HISTORY : None SURGICAL HISTORY : ORDER FILLER shunt ENCOUNTER: Initial ACUITY: 1 month PAIN SCALE: 5/10 LOCATION: Abdomen pain TECHNIQUE: Volumetric scanning of the abdomen and pelvis was performed. Using automated exposure control and ad justment of the mA and/or kV according to patient size, radiation dose was kept as low as reasonably achievable to obtain optimal diagnostic quality images. FINDINGS: Ventriculoperitoneal shunt is evident. The liver is free of focal defects. Spleen, pancreas, adrena ls and kidneys are unremarkable. There is symmetrical renal function. There is minimal bowel wall thickening in the jejunum, nonspecific. There is no adenopathy appreciat ed. Region of the cecum and terminal ileum are unremarkable. Diverticula are present in the sigmoid colon without diverticulitis. Bladder, prostate, seminal vesi cles are unremarkable. There is no inguinal or axillary adenopathy. CONCLUSION: Minimal bowel wall thickening in proximal jejunum without adenopathy, nonspecific. Duarte Borrego MD FACR on April 29, 2017 at 13:39 Board Certified Radiologist. This report was verified electronically.
--- NOTE | 2017-04-29 14:07 | PD ---
Data Data Last Documented VS Vital Signs Date Time Temp Pulse Resp B/P Pulse Ox O2 Delivery O2 Flow Rate FiO2 04/29/17 12:51 96 Room Air 04/29/17 11:08 98.6 62 20 132/84 Orders Complete Blood Count With Diff (04/29/17 11:46) Comprehensive Metabolic Panel (04/29/17 11:46) Lipase (04/29/17 11:46) Urinalysis - C+S If Indicated (04/29/17 11:46) Ct Abd/Pel W Iv Contrast(Rout) (04/29/17 11:46) Iv Access Insert/Monitor (04/29/17 11:46) Ecg Monitoring (04/29/17 11:46) Oximetry (04/29/17 11:46) Pantoprazole Inj (Protonix Inj) (04/29/17 12:00) Sodium Chlor 0.9% 1000 Ml Inj (Ns 1000 M (04/29/17 11:46) Sodium Chloride 0.9% Flush (Ns Flush) (04/29/17 12:00) Al-Mag Hy-Si 40-40-4 Mg/Ml Liq (Mag-Al P (04/29/17 12:00) Lidocaine 2% Viscous (Xylocaine 2% Visco (04/29/17 12:00) Metoclopramide Inj (Reglan Inj) (04/29/17 12:00) Morphine Inj (Morphine Inj) (04/29/17 12:45) Iohexol 350 Inj (Omnipaque 350 Inj) (04/29/17 13:19) Labs Laboratory Tests Test 04/29/17 04/29/17 11:55 12:05 White Blood Count 7.7 TH/MM3 Red Blood Count 4.76 MIL/MM3 Hemoglobin 14.4 GM/DL Hematocrit 41.5 % Mean Corpuscular Volume 87.3 FL Mean Corpuscular Hemoglobin 30.2 PG Mean Corpuscular Hemoglobin 34.6 % Concent Red Cell Distribution Width 13.7 % Platelet Count 217 TH/MM3 Mean Platelet Volume 10.6 FL Neutrophils (%) (Auto) 70.9 % Lymphocytes (%) (Auto) 18.6 % Monocytes (%) (Auto) 7.9 % Eosinophils (%) (Auto) 2.2 % Basophils (%) (Auto) 0.4 % Neutrophils # (Auto) 5.5 TH/MM3 Lymphocytes # (Auto) 1.4 TH/MM3 Monocytes # (Auto) 0.6 TH/MM3 Eosinophils # (Auto) 0.2 TH/MM3 Basophils # (Auto) 0.0 TH/MM3 CBC Comment DIFF FINAL Differential Comment Sodium Level 139 MEQ/L Potassium Level 3.8 MEQ/L Chloride Level 108 MEQ/L Carbon Dioxide Level 25.2 MEQ/L Anion Gap 6 MEQ/L Blood Urea Nitrogen 7 MG/DL Creatinine 0.93 MG/DL Estimat Glomerular Filtration 99 ML/MIN Rate Random Glucose 104 MG/DL Calcium Level 8.7 MG/DL Total Bilirubin 0.3 MG/DL Aspartate Amino Transf 16 U/L (AST/SGOT) Alanine Aminotransferase 47 U/L (ALT/SGPT) Alkaline Phosphatase 97 U/L Total Protein 7.3 GM/DL Albumin 4.1 GM/DL Lipase 1106 U/L Urine Color YELLOW Urine Turbidity CLEAR Urine pH 6.5 Urine Specific [place] 1.018 Urine Protein TRACE mg/dL Urine Glucose (UA) NEG mg/dL Urine Ketones NEG mg/dL Urine Occult Blood NEG Urine Nitrite NEG Urine Bilirubin NEG Urine Urobilinogen LESS THAN 2.0 MG/DL Urine Leukocyte Esterase NEG Urine RBC LESS THAN 1 /hpf Urine WBC LESS THAN 1 /hpf Microscopic Urinalysis Comment CULT NOT INDICATED MDM Supervised Visit with IRVIN: Yes Narrative Course The history, exam, and medical decision-making in the associated mid-level provider note were completed with my assistance. I reviewed and agree with the findings presented. I attest that I had a [id number] encounter with the patient on the same day, and personally performed and documented my assessment and findings in the medical record. *My assessment and Findings: 26-year-old male for months worth of worsening epigastric abdominal pain associated with nausea vomiting. 2 previous visits with a negative CT and a mildly elevated lipase. Today with significant elevation of lipase adjusting pancreatitis with a cause of his symptoms. Etiology is unclear. Looks otherwise well. We'll plan on admission for further evaluation and treatment. James Rico MD April 29, 2017 14:07
[2017-04-29] MEDS ORDERED: LACTULOSE SYRUP 20 GM/30 ML CUP PO PRN (14:15)
[2017-04-29] MEDS ORDERED: SENNOSIDES 8.6 MG TAB PO PRN (14:15)
[2017-04-29] MEDS ORDERED: BISACODYL 10 MG SUPP RECTAL PRN (14:15)
[2017-04-29] MEDS ORDERED: NALOXONE HCL 0.4 MG/ML AMP IV PRN (14:15)
[2017-04-29] MEDS ORDERED: MAGNESIUM HYDROXIDE SUSP 30 ML CUP PO PRN (14:15)
[2017-04-29] MEDS: PANTOPRAZOLE SODIUM 40 MG VIAL IV PUSH SCH ×2 (15:14→21:11)
[2017-04-29] MEDS: LACTATED RINGER'S 1000 ML INJ 1,000 ML IV SCH ×2 (15:14→21:18)
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
[2017-04-29 16:15] VITALS: BP 132/72
[2017-04-29 16:38] VITALS: BP 111/69
[2017-04-29 17:00] VITALS: BP 112/72; PULSE 74; RESP 18; TEMP 97.9; O2SAT 95
--- NOTE | 2017-04-29 19:22 | HHI.HP ---
[facility] Primary Care Physician No Primary Care Physician Admission Diagnosis Pancreatitis, enteritis Diagnoses: Travel History International Travel<30 Days: No Contact w/Intl Traveler <30 Da: No Traveled to Known Affected Are: No History of Present Illness 26-year-old male with history of ENVIRONMENTAL COMPLIANCE TECHNICIAN shunt who presents with a 2 month history of gradually worsening nausea, sharp intermittent epigastric pain, as well as left lower quadrant abdominal pain, with tenesmus. Patient also reports a two- week history of nonbloody, foul-smelling diarrhea about 4 times daily. Patient came in today because nausea was much worse, with small blood tinge, as well as worsening of left lower quadrant pain. He does smoke marijuana, which helps with his nausea. He does report that hot showers improve his nausea. Review of Systems Performed and negative except for history of present illness and past medical history. Past Family Social History Past Medical History History of hydrocephalus with placement of ENVIRONMENTAL COMPLIANCE TECHNICIAN shunt in 1991 Legally blind. 9, sixth nerve palsy Past Surgical History insertion ENVIRONMENTAL COMPLIANCE TECHNICIAN shunt 1991. No subsequent ventriculograms or replacements. Reported Medications Reported Meds & Active Scripts Active Penicillin V Potassium 500 Mg Tab 500 Mg PO Q6H 10 Days Ondansetron Odt 4 Mg Tab 4 Mg SL Q6HR PRN Bentyl (Dicyclomine HCl) 20 Mg Tab 20 Mg PO QID PRN 7 Days Zofran Odt (Ondansetron Odt) 4 Mg Tab 4 Mg SL Q6HR PRN Protonix (Pantoprazole Sodium) 20 Mg Tab 20 Mg PO DAILY Hydrocodone-Acetaminophen 5-325 mg Tab 1 Tab PO Q6H PRN Reported Cymbalta DR (Duloxetine HCl) 60 Mg Capdr 60 Mg PO DAILY Vistaril (Hydroxyzine Pamoate) 50 Mg Cap 50 Mg PO TID [place] (Hydrocodone-Acetaminophen) 7.5-325 mg Tab 1 Tab PO Q8HR PRN Allergies: Coded Allergies: Tylenol/Codeine (Verified Adverse Reaction, Intermediate, Confusion, ) says he also become combative Family History Mother with diverticulitis. Father with colon cancer. No family history of Crohn's, UC, or autoimmune disease. Social History Patient has smoked one half pack per day for the past 15 years. Patient quit drinking 3 weeks ago. Previously drank on average 2-3 beers per day. Marijuana daily Physical Exam Vital Signs Vital Signs Date Time Temp Pulse Resp B/P Pulse Ox O2 Delivery O2 Flow Rate FiO2 04/29/17 17:00 97.9 74 18 112/72 95 04/29/17 16:38 111/69 04/29/17 16:15 132/72 04/29/17 12:51 96 Room Air 04/29/17 11:08 98.6 62 20 132/84 98 Room Air Physical Exam GENERAL: This is a well-nourished, well-developed patient. Appears uncomfortable. Alert and oriented 3. SKIN: No rashes, ecchymoses or lesions. Cool and dry. HEAD: Atraumatic. Normocephalic. No temporal or scalp tenderness. EYES: Pupils equal round and reactive. Extraocular motions intact. No scleral icterus. No injection or drainage. ENT: Nose without bleeding, purulent drainage or septal hematoma. Throat without erythema, tonsillar hypertrophy or exudate. Uvula midline. Airway patent. NECK: Trachea midline. No JVD or lymphadenopathy. Supple, nontender, no meningeal signs. CARDIOVASCULAR: Regular rate and rhythm without murmurs, gallops, or rubs. RESPIRATORY: Clear to auscultation. Breath sounds equal bilaterally. No wheezes , rales, or rhonchi. GASTROINTESTINAL: Abdomen soft, tender to moderate palpation in the left lower quadrant. No rebound or guarding. No hepato-splenomegaly, or palpable masses. No guarding. MUSCULOSKELETAL: Extremities without clubbing, cyanosis, or edema. No joint tenderness, effusion, or edema noted. No calf tenderness. Negative Homans sign bilaterally. NEUROLOGICAL: Awake and alert. Patient with vision loss, nystagmus. Otherwise no neurologic deficit Motor and sensory grossly within normal limits. Five out of 5 muscle strength in all muscle groups. Normal speech. Laboratory Laboratory Tests Test 04/29/17 04/29/17 11:55 12:05 White Blood Count 7.7 Red Blood Count 4.76 Hemoglobin 14.4 Hematocrit 41.5 Mean Corpuscular Volume 87.3 Mean Corpuscular Hemoglobin 30.2 Mean Corpuscular Hemoglobin 34.6 Concent Red Cell Distribution Width 13.7 Platelet Count 217 Mean Platelet Volume 10.6 Neutrophils (%) (Auto) 70.9 Lymphocytes (%) (Auto) 18.6 Monocytes (%) (Auto) 7.9 Eosinophils (%) (Auto) 2.2 Basophils (%) (Auto) 0.4 Neutrophils # (Auto) 5.5 Lymphocytes # (Auto) 1.4 Monocytes # (Auto) 0.6 Eosinophils # (Auto) 0.2 Basophils # (Auto) 0.0 CBC Comment DIFF FINAL Differential Comment Sodium Level 139 Potassium Level 3.8 Chloride Level 108 Carbon Dioxide Level 25.2 Anion Gap 6 Blood Urea Nitrogen 7 Creatinine 0.93 Estimat Glomerular Filtration 99 Rate Random Glucose 104 Calcium Level 8.7 Total Bilirubin 0.3 Aspartate Amino Transf 16 (AST/SGOT) Alanine Aminotransferase 47 (ALT/SGPT) Alkaline Phosphatase 97 Total Protein 7.3 Albumin 4.1 Lipase 1106 Urine Color YELLOW Urine Turbidity CLEAR Urine pH 6.5 Urine Specific [place] 1.018 Urine Protein TRACE Urine Glucose (UA) NEG Urine Ketones NEG Urine Occult Blood NEG Urine Nitrite NEG Urine Bilirubin NEG Urine Urobilinogen LESS THAN 2.0 Urine Leukocyte Esterase NEG Urine RBC LESS THAN 1 Urine WBC LESS THAN 1 Microscopic Urinalysis Comment CULT NOT INDICATED Result Diagram: 04/29/17 1155 04/29/17 1155 Imaging Last Impressions Abdomen/Pelvis CT 04/29/17 1146 Signed Impressions: Service Date/Time: Saturday, April 29, 2017 13:13 - CONCLUSION: Minimal bowel wall thickening in proximal jejunum without adenopathy, nonspecific. Duarte Borrego MD FACR Assessment and Plan Assessment and Plan //Acute pancreatitis -Lipase over 1000. Unremarkable pancreas on CT. -Due to what appears to be recurrent nature of this pancreatitis given previous admissions, will consult GI. -Nothing by mouth, continue IV fluids //Diarrhea. Subacute //Jejunitis -This could be secondary to inflammation from pancreatitis. -Due to recent penicillin for right upper molar, will check C. difficile. -Continue PPI secondary to possible peptic ulcer. -Continue IV fluids. GI following. Appreciate assistance. //Right upper molar. No signs of abscess. Has completed therapy with penicillin as outpatient. Will need to follow-up with dentist as outpatient. //History of ENVIRONMENTAL COMPLIANCE TECHNICIAN shunt. Legally blind No acute findings on CT abdomen. No acute neurologic issues. //Marijuana use. Patient counseled on cessation. Cessation strongly advised //Tobaccoism. Cessation counseling provided. Cessation strongly advised. //Prophylaxis SCDs. Hold chemical anticoagulation pending possible GI procedure. Code Status Full code Discussed Condition With Patient, nurse, ED physician. Physician Certification 2 Midnight Certification Type: Admission for Inpatient Services Order for Inpatient Services The services are ordered in accordance with Medicare regulations or non- Medicare payer requirements, as applicable. In the case of services not specified as inpatient-only, they are appropriately provided as inpatient services in accordance with the 2-midnight benchmark. Estimated LOS (days): 3 days is the estimated time the patient will need to remain in the hospital, assuming treatment plan goals are met and no additional complications. Post-Hospital Plan: Not yet determined Flex Melgoza MD April 29, 2017 19:22
[2017-04-29 20:00] VITALS: BP 119/72; PULSE 69; RESP 16; TEMP 98.9; O2SAT 98
[2017-04-29] MEDS: SODIUM CHLORIDE 0.9% FLUSH 10 ML FLUSH IV FLUSH SCH (21:10)
[2017-04-29] MEDS: ONDANSETRON HCL 4 MG/2 ML VIAL IVP PRN (21:10)
[2017-04-29] MEDS: MORPHINE SULFATE 4 MG/ML INJ IV PUSH PRN (21:10)
[2017-04-29] MEDS: DOCUSATE SODIUM 50 MG/SENNA 8.6 MG TAB PO SCH (21:11)
[2017-04-30] VITALS (8 sets, daily range): BP systolic 95–158; BP diastolic 60–78; PULSE 52–100; RESP 16–20; TEMP 97–98.5; O2SAT 97–99
[2017-04-30] MEDS: MORPHINE SULFATE 4 MG/ML INJ IV PUSH PRN ×4 (03:30→21:38)
[2017-04-30] MEDS: LACTATED RINGER'S 1000 ML INJ 1,000 ML IV SCH ×3 (03:31→20:08)
[2017-04-30 07:29] LABS: AUTOMATED NEUTROPHIL # 5.3 TH/MM3 (1.8-7.7); BASOPHIL # 0.1 TH/MM3 (0-0.2); BASOPHIL % 0.7 % (0.0-2.0); EOSINOPHIL # 0.2 TH/MM3 (0-0.4); EOSINOPHIL % 2.6 % (0.0-4.0); HEMATOCRIT 42.7 % (39.0-51.0); HEMO FLAGS DIFF FINAL; LYMPH % 23.3 % (9.0-44.0); LYMPHOCYTE # 1.9 TH/MM3 (1.0-4.8); MEAN CELL VOLUME 89.8 FL (80.0-100.0); MEAN CORPUSCULAR HGB CONC 32.2 % (32.0-36.0); MONO % 7.9 % (0.0-8.0); NEUT % 65.5 % (16.0-70.0); PLATELET COUNT 211 TH/MM3 (150-450); RED BLOOD COUNT 4.75 MIL/MM3 (4.50-5.90); RED CELL DISTRIBUTION WIDTH 13.9 % (11.6-17.2)
[2017-04-30 07:35] LABS: PROTHROMBIN TIME - PATIENT 11.2 SEC (9.8-11.6)
[2017-04-30 08:00] LABS: ALT (GPT) 42 U/L (12-78); ANION GAP 7 MEQ/L (5-15); BICARBONATE 29.1 MEQ/L (21.0-32.0); BLOOD UREA NITROGEN 5 MG/DL (7-18); CHLORIDE 108 MEQ/L (98-107); GLOMERULAR FILTRATION RATE 116 ML/MIN (>89); POTASSIUM 3.9 MEQ/L (3.5-5.1); SODIUM (NA) 144 MEQ/L (136-145)
[2017-04-30 08:03] LABS: ALKALINE PHOSPHATASE 95 U/L (45-117); AST (GOT) 13 U/L (15-37); TOTAL BILIRUBIN ADULT 0.5 MG/DL (0.2-1.0)
[2017-04-30] MEDS: PANTOPRAZOLE SODIUM 40 MG VIAL IV PUSH SCH ×2 (08:36→20:09)
[2017-04-30] MEDS: SODIUM CHLORIDE 0.9% FLUSH 10 ML FLUSH IV FLUSH SCH ×2 (08:36→20:08)
[2017-04-30] MEDS: DOCUSATE SODIUM 50 MG/SENNA 8.6 MG TAB PO SCH ×2 (08:36→20:09)
[2017-04-30] MEDS ORDERED: PROPOFOL 200 MG/20 ML AMP IV ONE (10:18)
--- NOTE | 2017-04-30 10:29 | GIPROC ---
[facility] [address] [facility]. [facility], [address] EGD PROCEDURE REPORT EXAM DATE: 04/30/2017 PATIENT NAME: Ton Ibarra MR #: [id number] BIRTHDATE: 1990 ATTENDING: Gil Gayle MD ORDER #: [id number] TERRAZZO POLISHER HELPER: Joel Millard and Ita May STATUS: inpatient INDICATIONS: The patient is a 26 yr old male here for an EGD due to hematemesis PROCEDURE PERFORMED: EGD w/ biopsy MEDICATIONS: None and Per Anesthesia. TOPICAL ANESTHETIC: none CONSENT: The patient understands the risks and benefits of the procedure and understands that these risks include, but are not limited to: sedation, allergic reaction, infection, perforation and/or bleeding. Alternative means of evaluation and treatment include, among others: physical exam, x-rays, and/or surgical intervention. The patient elects to proceed with this endoscopic procedure. medical equipment was checked for proper function. Hand hygiene and appropriate measures for infection prevention was taken. After the risks, benefits and alternatives of the procedure were thoroughly explained, Informed consent was verified, confirmed and timeout was successfully executed by the treatment team. The patient was anesthetized with topical anesthesia and the Pentax [id number]-[id number] and [id number] endoscope was introduced through the mouth and advanced to the second portion of the duodenum. Retroflexion was performed and was normal The gastroscope was then slowly withdrawn and removed. ESOPHAGUS: The esophagus was otherwise normal. A diaphragmatic hiatus was present that measured 2 scope diameters. STOMACH: There was mild gastritis in the entire examined stomach. Multiple biopsies were performed. DUODENUM: The duodenal mucosa appeared normal in the bulb and second portion of the duodenum. ADVERSE EVENTS: There were no complications. IMPRESSIONS: 1. The esophagus was otherwise normal 2. Diaphragmatic hiatus was present that measured 2 scope diameters 3. There was mild gastritis in the entire examined stomach; multiple biopsies were performed 4. Normal duodenal mucosa in the bulb and second portion of the duodenum 5. Retroflexion was performed and was normal RECOMMENDATIONS: 1. Await biopsy results. Biopsy results will not be ready for 7-10 days. If you don't hear from us in two weeks, call our office for biopsy results. 2. Continue PPI PATIENT CONDITION: stable DISPOSITION: Observation REPEAT EXAM: Return as needed for EGD Gil Gayle MD eSigned: Gil Gayle MD 04/30/2017 10:28 AM cc: PATIENT NAME: Ton Ibarra MR#: [id number]
[2017-04-30] MEDS ORDERED: MORPHINE SULFATE 4 MG/ML INJ IV PUSH ONE (12:30)
--- NOTE | 2017-04-30 15:22 | HHI.PR ---
Subjective Remarks Abdominal pain remains. Lipase has significantly improved overnight. Patient no longer has nausea and vomiting. Etiology for enteritis, pancreatitis, and nausea and vomiting may be a viral or bacterial origin. Objective Vital Signs Date Time Temp Pulse Resp B/P Pulse Ox O2 Delivery O2 Flow Rate FiO2 04/30/17 12:07 98.0 52 20 114/78 97 04/30/17 10:42 98.0 63 16 129/71 98 04/30/17 10:27 98.0 82 16 136/73 98 04/30/17 09:45 97.2 56 19 110/73 99 04/30/17 08:00 97.2 56 19 110/73 99 04/30/17 04:00 97.0 87 16 118/69 99 04/30/17 00:00 97.9 62 16 117/67 97 04/29/17 20:00 98.9 69 16 119/72 98 04/29/17 17:00 97.9 74 18 112/72 95 04/29/17 16:38 111/69 04/29/17 16:15 132/72 I/O 04/29/17 04/29/17 04/29/17 04/30/17 04/30/17 04/30/17 07:00 15:00 23:00 07:00 15:00 23:00 Intake Total 0 ml 460 ml Balance 0 ml 460 ml Intake Oral 0 ml IV Total 460 ml # Voids 1 2 10 Result Diagram: 04/30/17 0604 04/30/17 0604 Imaging Last Impressions Abdomen/Pelvis CT 04/29/17 1146 Signed Impressions: Service Date/Time: Saturday, April 29, 2017 13:13 - CONCLUSION: Minimal bowel wall thickening in proximal jejunum without adenopathy, nonspecific. Duarte Borrego MD FACR Objective Remarks GENERAL: NAD, A&Ox3 SKIN: Warm and dry. HEAD: Normocephalic. EYES: No scleral icterus. No injection or drainage. NECK: Supple, trachea midline. No JVD or lymphadenopathy. CARDIOVASCULAR: Regular rate and rhythm without murmurs, gallops, or rubs. RESPIRATORY: Breath sounds equal bilaterally. No accessory muscle use. GASTROINTESTINAL: Abdomen soft, non-tender, nondistended. MUSCULOSKELETAL: No cyanosis, or edema. Medications and IVs Last Impressions Abdomen/Pelvis CT 04/29/17 1146 Signed Impressions: Service Date/Time: Saturday, April 29, 2017 13:13 - CONCLUSION: Minimal bowel wall thickening in proximal jejunum without adenopathy, nonspecific. Duarte Borrego MD FACR A/P Problem List: (1) Acute pancreatitis ICD Code: K85.90 (2) Enteritis ICD Code: K52.9 (3) Abdominal pain ICD Code: R10.9 Assessment and Plan Assessment and Plan 26-year-old male admitted with acute pancreatitis and enteritis Acute pancreatitis Lipase improved. Advanced to full regular diet Check lipase in a.m. Diarrhea Nausea Vomiting Resolved More suggestive of a viral gastroenteritis EGD showed evidence of gastritis Enteritis Jejunitis No evidence of leukocytosis Etiologies likely viral If solids are tolerated patient will be discharged morning Presence of IT OPERATIONS SPECIALIST shunt Legally blind Follow-up as an outpatient Follow clinically Marijuana use Nicotine abuse Cessation recommended DVT prophylaxis SCDs Problem Qualifiers (1) Acute pancreatitis: Qualified Code: K85.90 - Acute pancreatitis, unspecified complication status, unspecified pancreatitis type Fredi Santos MD Apr 30, 2017 3:22 pm
[2017-04-30] MEDS: ONDANSETRON HCL 4 MG/2 ML VIAL IVP PRN (20:09)
[2017-05-01] VITALS: BP 113/68; PULSE 68; RESP 15; TEMP 97.3; O2SAT 98
[2017-05-01 04:00] VITALS: BP 107/68; PULSE 54; RESP 15; TEMP 96.9; O2SAT 100
[2017-05-01] MEDS: PANTOPRAZOLE SODIUM 40 MG VIAL IV PUSH SCH (08:01)
[2017-05-01] MEDS: DOCUSATE SODIUM 50 MG/SENNA 8.6 MG TAB PO SCH (08:02)
[2017-05-01] MEDS: SODIUM CHLORIDE 0.9% FLUSH 10 ML FLUSH IV FLUSH SCH (08:02)
[2017-05-01 08:45] VITALS: BP 115/60; PULSE 57; RESP 20; TEMP 97.6; O2SAT 98
--- NOTE | 2017-05-01 13:36 | HHI.DS ---
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 Patient also reports a two- week history of nonbloody, foul-smelling diarrhea about 4 times daily. Patient came in today because nausea was much worse, with small blood tinge, as well as worsening of left lower quadrant pain. He does smoke marijuana, which helps with his nausea. He does report that hot showers improve his nausea. CBC/BMP: 04/30/17 0604 04/30/17 0604 Significant Findings Laboratory Tests Test 04/29/17 04/30/17 11:55 06:04 Neutrophils (%) (Auto) 70.9 % (16.0-70.0) Chloride Level 108 MEQ/L 108 MEQ/L (98-107) (98-107) Lipase 1106 U/L (73-393) Mean Platelet Volume 11.1 FL (7.0-11.0) Blood Urea Nitrogen 5 MG/DL (7-18) Aspartate Amino Transf 13 U/L (15-37) (AST/SGOT) Imaging Last Impressions Abdomen/Pelvis CT 04/29/17 1146 Signed Impressions: Service Date/Time: Saturday, April 29, 2017 13:13 - CONCLUSION: Minimal bowel wall thickening in proximal jejunum without adenopathy, nonspecific. Duarte Borrego MD FACR Hospital Course Mr Ibarra is a 26-year-old male who was admitted here secondary to abdominal pain. Etiology was found to be pancreatitis with additional findings of enteritis/jejunitis. In addition to abdominal pain he also had diarrhea and vomiting. She had not been drinking alcohol. He has a history of abdominal symptoms for the past 2-3 months. EGD occurred but showed nothing other than gastritis. Biopsies have been taken. With IV hydration and a liquid diet the patient's pancreatic enzymes normalized. Today he is able to tolerate solids. At this point is medically stable for discharge home with continuation of the simple diet and GI follow-up as an outpatient. Etiology is suspected to be viral. Etiology for his chronic dyspepsia may be irritable bowel syndrome. Pt Condition on Discharge: Stable Discharge Disposition: Discharge Home Discharge Time: <= 30 minutes Discharge Instructions DIET: Follow Instructions for: As Tolerated, No Restrictions Activities you can perform: Regular-No Restrictions Follow up Referrals: Gastroenterology - 1 Week with Rolando Martin PCP Follow-up - 1 Week Continued Medications: Dicyclomine (Bentyl) 20 Mg Tab 20 MG PO QID PRN ABDOMINAL CRAMPING Days 7 Ref [address] (Cymbalta DR) 60 Mg Capdr 60 MG PO DAILY #30 Ref 0 CAP Hydrocodone-Acetaminophen ([place]) 7.5-325 mg Tab 1 TAB PO Q8HR PRN PAIN Ref 0 TAB Hydrocodone-Acetaminophen (Hydrocodone-Acetaminophen) 5-325 mg Tab 1 TAB PO Q6H PRN PAIN #15 Ref 0 TAB Hydroxyzine Pamoate (Vistaril) 50 Mg Cap 50 MG PO TID Ref 0 CAP Ondansetron Odt (Zofran Odt) 4 Mg Tab 4 MG SL Q6HR PRN Nausea/Vomiting #15 Ref 0 TAB Ondansetron Odt (Ondansetron Odt) 4 Mg Tab 4 MG SL Q6HR PRN Nausea/Vomiting #16 Ref 0 TAB Pantoprazole (Protonix) 20 Mg Tab 20 MG PO DAILY Reflux #30 Ref 0 TAB Penicillin V Potassium (Penicillin V Potassium) 500 Mg Tab 500 MG PO Q6H Infection Days 10 Ref 0 TAB Fredi Santos MD May 01, 2017 1:36 pm
[2017-05-04 23:53] LABS: IGG SUBCLASSES 4 98.8 mg/dL (4-86)
== END 2017-05-01 10:54 | disposition home or self-care (01) | DRG 440 ==
LOC: NEPD 11:06 → NEDA 14:13 → HOCA 16:37
PROVIDERS: ADMIT Hospitalist; ATTEND Hospitalist
PROC: 0DB68ZX Excision of Stomach, Via Natural or Artificial Opening Endoscopic, Diagnostic (ICD-10-PCS; principal; 2017-04-30 09:45)
DX: K85.90 Acute pancreatitis without necrosis or infection, unspecified (principal); H49.20 Sixth [abducent] nerve palsy, unspecified eye; K52.9 Noninfective gastroenteritis and colitis, unspecified; K29.70 Gastritis, unspecified, without bleeding; F12.90 Cannabis use, unspecified, uncomplicated; Z98.2 Presence of cerebrospinal fluid drainage device; H54.8 Legal blindness, as defined in USA; F17.210 Nicotine dependence, cigarettes, uncomplicated
CPT/HCPCS: 74177; 80053; 81001; 82784; 82787; 83690; 85025; 85610; 88305; 88312; 96361; 96374; 96375; C9113; J2270; J2405; J2765; J3010; J7030; J7120; Q9967